=== PATIENT | male | born 1960 | race Caucasian/White ===

== ENCOUNTER 2016-12-02 08:56 | Day surgery (SDC) | payer OTHER ==
[~2016-12-02] VITALS: Ht 188 cm; Wt 101.5 kg
[2016-12-02] MEDS ORDERED: GLUCOSAMIN 500 PO (09:42)
[2016-12-02] MEDS ORDERED: CARDIZEM CD 18180 MG PO (09:42)
[2016-12-02] MEDS ORDERED: TYLENOL 325MG325 MG PO (09:43)
[2016-12-02] MEDS ORDERED: ASPIRIN 32325 MG/TAB PO (09:43)
[2016-12-02 09:55] VITALS: BP 129/89; PULSE 88; TEMP 97.5
[2016-12-02 11:30] VITALS: BP 121/89; PULSE 83
[2016-12-02 11:45] VITALS: BP 117/83; PULSE 82
[2016-12-02 12:00] VITALS: BP 127/83; PULSE 75
[2016-12-02 13:49] VITALS: BP 117/79; PULSE 67
== END 2016-12-02 12:20 | disposition home or self-care (01) ==
LOC: SDCO 08:56
DX: Z12.11 Encounter for screening for malignant neoplasm of colon (principal); K29.50 Unspecified chronic gastritis without bleeding; R19.5 Other fecal abnormalities; K26.7 Chronic duodenal ulcer without hemorrhage or perforation
CPT/HCPCS: J2250; J3010; J7030